=== PATIENT | male | born 1955 ===

== ENCOUNTER 2022-05-06 06:11 | Inpatient (IN) ==
[2022-05-01 11:11] LABS: Basophils % 0.3 % (0.0-0.8); Eosinophils # 0.1 10*3/uL (0.0-0.87); Eosinophils % 2.3 % (0.00-10.9); Hematocrit 42.9 VOL% (42.0-52.0); Hemoglobin 14.5 GM/DL (14.0-18.0); Immature Granulocytes % 0.5 %; Immature Granulocytes Absolute 0.03 #; Lymphocytes # 1.2 10*3/uL (1.4-4.0); Lymphocytes % 19.5 % (21.2-54.2); Mean Corpuscular HGB Conc 33.8 GM/DL (32-36); Mean Corpuscular Volume 96.6 FL (87-102); Mean Platelet Volume 11.3 FL (9.6-12.0); Monocytes # 0.4 10*3/uL (0.11-0.8); Neutrophils % 71.4 % (38.7-73.9); Platelet Count 153 T/CUMM (130-400); Red Blood Count 4.44 MC/CUMM (3.8-5.5); Red Cell Distribution Width 11.4 % (9.3-17.3); White Blood Count 6.2 T/CUMM (4-12)
[2022-05-01 11:40] LABS: Albumin 3.6 G/DL (3.4-5.0); Bilirubin,Total 0.8 MG/DL (0.20-1.00); Calcium 9.2 MG/DL (8.5-10.1); Osmolality,Calculated 279.4 MOS/KG (273-304); Potassium 4.4 MMOL/L (3.5-5.1); Total Protein 6.7 G/DL (6.4-8.2)
[~2022-05-06 06:11] MED LIST: ALVIMOPAN 12 MG CAPSULE PO ONE; LACTATED RINGERS 1,000 ML IV SCH; cefTRIAXone 1,000 MG in SODIUM CHLORIDE 0.9% 100 ML IV ONE
[2022-05-06] MEDS ORDERED: GABAPENTIN 400 MG CAPSULE PO ONE (08:01)
[2022-05-06] MEDS ORDERED: FAMOTIDINE 20 MG TABLET PO ONE (08:01)
[2022-05-06] MEDS ORDERED: DIAZEPAM 5 MG TABLET PO ONE (08:01)
[2022-05-06] MEDS ORDERED: ACETAMINOPHEN 500 MG TABLET PO ONE (08:01)
[2022-05-06] MEDS ORDERED: DEXMEDETOMIDINE 200 MCG/2 ML VIAL ONE (10:44)
[2022-05-06] MEDS ORDERED: MIDAZOLAM 2 MG/2 ML VIAL ONE (10:45)
[2022-05-06] MEDS ORDERED: LIDOCAINE 1% 5 ML VIAL ONE (10:50)
[2022-05-06] MEDS ORDERED: ROPIVACAINE 0.5% 30 ML VIAL ONE ×2 (10:51→11:53)
[2022-05-06] MEDS ORDERED: DEXAMETHASONE 4 MG/1 ML VIAL ONE ×2 (10:51)
[2022-05-06] MEDS ORDERED: fentaNYL 100 MCG/2 ML VIAL ONE (11:47)
[2022-05-06] MEDS ORDERED: ETOMIDATE 40 MG/20 ML VIAL IV ONE (11:48)
[2022-05-06] MEDS ORDERED: DESFLURANE 1 UNIT/15 MINUTE INH ONE ×2 (11:48→15:11)
[2022-05-06] MEDS ORDERED: LIDOCAINE 2% TOP JELLY 20 ML VIAL INTRAURETH ONE (11:53)
[2022-05-06] MEDS ORDERED: ONDANSETRON 4 MG/2 ML VIAL ONE (12:03)
[2022-05-06] MEDS ORDERED: ROCURONIUM 50 MG/5 ML VIAL IV ONE ×2 (12:31→12:35)
[2022-05-06 12:32] LABS: Mucus,Urine Occasional /LPF (Occasional); RBC,Urine 2 /HPF (0-4); Sperm,Urine Occasional /HPF (Negative); Urine Appearance Clear (Clear); Urine Color Yellow (Yellow)
[2022-05-06 12:33] LABS: Bilirubin,Urine Negative (Negative); Blood, Urine Trace mg/dL (Negative); Glucose,Urine (UA) Negative (Negative); Ketones,Urine Negative (Negative); Nitrite,Urine Negative (Negative); Protein,Urine Negative (Negative); Urine Urobilinogen 0.2 eU/dL (<2.0)
[2022-05-06] MEDS ORDERED: NEOSTIGMINE 10 MG/10 ML VIAL ONE (14:53)
[2022-05-06] MEDS ORDERED: GLYCOPYRROLATE 0.4 MG/2 ML VIAL ONE ×2 (14:53→15:00)
[2022-05-06] MEDS ORDERED: MAGNESIUM HYDROXIDE SUSP 30 ML UDCUP PO PRN (15:08)
[2022-05-06] MEDS ORDERED: ONDANSETRON 4 MG/2 ML VIAL IV PRN ×2 (15:08→16:15)
[2022-05-06] MEDS ORDERED: HYDROmorphone 1 MG/1 ML SYRINGE IV PRN (15:08)
[2022-05-06] MEDS ORDERED: diphenhydrAMINE 50 MG/1 ML VIAL IV PRN (15:08)
[2022-05-06] MEDS ORDERED: PROMETHAZINE 25 MG/1 ML VIAL IM PRN (15:08)
[2022-05-06] MEDS ORDERED: LACTATED RINGERS 1,000 ML IV ONE (15:10)
[2022-05-06] MEDS ORDERED: hydrALAZINE 25 MG TABLET PO PRN (15:11)
[2022-05-06] MEDS ORDERED: cefTRIAXone 1,000 MG in SODIUM CHLORIDE 0.9% 100 ML IV SCH (15:30)
[2022-05-06] MEDS ORDERED: MEPERIDINE 25 MG/1 ML VIAL ONE (15:49)
[2022-05-06 16:13] LABS: Basophils % 0.1 % (0.0-0.8); Eosinophils % 0.1 % (0.00-10.9); Hematocrit 41.8 VOL% (42.0-52.0); Immature Granulocytes % 0.4 %; Immature Granulocytes Absolute 0.04 #; Lymphocytes # 0.8 10*3/uL (1.4-4.0); Lymphocytes % 7.9 % (21.2-54.2); Mean Corpuscular HGB Conc 33.5 GM/DL (32-36); Mean Corpuscular Volume 98.6 FL (87-102); Monocytes # 0.2 10*3/uL (0.11-0.8); Monocytes % 1.6 % (1.7-12.7); Neutrophils % 89.9 % (38.7-73.9); Platelet Count 140 T/CUMM (130-400); Red Blood Count 4.24 MC/CUMM (3.8-5.5); Red Cell Distribution Width 11.7 % (9.3-17.3); White Blood Count 10.3 T/CUMM (4-12)
[2022-05-06] MEDS ORDERED: MEPERIDINE 25 MG/1 ML VIAL IV PRN (16:15)
[2022-05-06 16:31] LABS: Calcium 9.2 MG/DL (8.5-10.1); Osmolality,Calculated 280.7 MOS/KG (273-304); Potassium 4.1 MMOL/L (3.5-5.1)
[2022-05-06] MEDS: ACETAMINOPHEN 325 MG TABLET PO SCH ×2 (18:01→21:02)
[2022-05-06] MEDS: SODIUM CHLORIDE 0.9% 1,000 ML IV SCH (18:02)
[2022-05-06] MEDS: ALVIMOPAN 12 MG CAPSULE PO SCH (21:02)
[2022-05-06] MEDS: DOCUSATE SODIUM 100 MG CAPSULE PO SCH (21:02)
[2022-05-06] MEDS: OXYBUTYNIN 5 MG TABLET PO SCH (21:02)
[2022-05-07] MEDS: SODIUM CHLORIDE 0.9% 1,000 ML IV SCH ×2 (02:08→07:30)
[2022-05-07] MEDS: ACETAMINOPHEN 325 MG TABLET PO SCH ×4 (04:05→21:19)
[2022-05-07 05:13] LABS: Basophils % 0.2 % (0.0-0.8); Eosinophils % 0.4 % (0.00-10.9); Hematocrit 39.2 VOL% (42.0-52.0); Hemoglobin 13.1 GM/DL (14.0-18.0); Immature Granulocytes % 0.4 %; Immature Granulocytes Absolute 0.04 #; Lymphocytes % 10.1 % (21.2-54.2); Mean Corpuscular HGB Conc 33.4 GM/DL (32-36); Mean Corpuscular Volume 97.5 FL (87-102); Mean Platelet Volume 10.3 FL (9.6-12.0); Monocytes # 0.8 10*3/uL (0.11-0.8); Monocytes % 8.4 % (1.7-12.7); Neutrophils % 80.5 % (38.7-73.9); Platelet Count 141 T/CUMM (130-400); Red Blood Count 4.02 MC/CUMM (3.8-5.5); Red Cell Distribution Width 11.7 % (9.3-17.3); White Blood Count 9.4 T/CUMM (4-12)
[2022-05-07 05:32] LABS: Calcium 8.6 MG/DL (8.5-10.1); Osmolality,Calculated 278.7 MOS/KG (273-304); Potassium 4.3 MMOL/L (3.5-5.1)
[2022-05-07] MEDS: LEVOTHYROXINE 88 MCG TABLET PO SCH (05:39)
[2022-05-07] MEDS: ALVIMOPAN 12 MG CAPSULE PO SCH ×2 (09:02→20:14)
[2022-05-07] MEDS: OXYBUTYNIN 5 MG TABLET PO SCH ×3 (09:02→20:14)
[2022-05-07] MEDS: PANTOPRAZOLE 40 MG TABLET PO SCH (09:02)
[2022-05-07] MEDS: DOCUSATE SODIUM 100 MG CAPSULE PO SCH ×2 (09:02→20:15)
[2022-05-07] MEDS: oxyCODONE/ACETAMINOPHEN 5-325 MG TABLET PO PRN ×2 (10:03→20:14)
[2022-05-07] MEDS ORDERED: SODIUM CHLORIDE 0.9% 250 ML IV ONE (12:00)
[2022-05-07] MEDS: cefTRIAXone 1,000 MG in SODIUM CHLORIDE 0.9% 100 ML IV SCH (15:04)
[2022-05-07 16:26] LABS: Folate 7.33 NG/ML (5.38-24.0)
[2022-05-07 16:28] LABS: % Iron Saturation 6.9 % (18-50); Risk Ratio 2.89; VLDL Cholesterol 12.6 MG/DL
[2022-05-08] MEDS: ACETAMINOPHEN 325 MG TABLET PO SCH ×4 (03:29→20:44)
[2022-05-08] MEDS: SODIUM CHLORIDE 0.9% 1,000 ML IV SCH ×3 (04:33→18:55)
[2022-05-08 05:31] LABS: Basophils % 0.2 % (0.0-0.8); Eosinophils # 0.1 10*3/uL (0.0-0.87); Eosinophils % 0.8 % (0.00-10.9); Hematocrit 43.7 VOL% (42.0-52.0); Hemoglobin 14.8 GM/DL (14.0-18.0); Immature Granulocytes % 0.5 %; Immature Granulocytes Absolute 0.05 #; Lymphocytes # 0.9 10*3/uL (1.4-4.0); Lymphocytes % 8.5 % (21.2-54.2); Mean Corpuscular HGB Conc 33.9 GM/DL (32-36); Mean Platelet Volume 10.7 FL (9.6-12.0); Monocytes # 0.9 10*3/uL (0.11-0.8); Monocytes % 7.9 % (1.7-12.7); Neutrophils % 82.1 % (38.7-73.9); Platelet Count 140 T/CUMM (130-400); Red Blood Count 4.55 MC/CUMM (3.8-5.5); Red Cell Distribution Width 11.4 % (9.3-17.3)
[2022-05-08] MEDS: LEVOTHYROXINE 88 MCG TABLET PO SCH (05:32)
[2022-05-08 05:49] LABS: Calcium 8.8 MG/DL (8.5-10.1); Osmolality,Calculated 273.2 MOS/KG (273-304)
[2022-05-08 05:53] LABS: Platelet Estimate Adequate
[2022-05-08] MEDS ORDERED: SODIUM CHLORIDE 0.9% 500 ML IV ONE (07:07)
[2022-05-08] MEDS: DOCUSATE SODIUM 100 MG CAPSULE PO SCH ×2 (08:10→20:45)
[2022-05-08] MEDS: ALVIMOPAN 12 MG CAPSULE PO SCH ×2 (08:10→20:44)
[2022-05-08] MEDS: PANTOPRAZOLE 40 MG TABLET PO SCH (08:10)
[2022-05-08] MEDS: OXYBUTYNIN 5 MG TABLET PO SCH ×3 (08:10→20:44)
[2022-05-08] MEDS: CHOLECALCIFEROL 1,000 UNIT TABLET PO SCH (10:14)
[2022-05-08] MEDS: FERRIC GLUCONATE COMPLEX 125 MG in SODIUM CHLORIDE 0.9% 100 ML IV SCH (10:14)
[2022-05-08] MEDS: oxyCODONE/ACETAMINOPHEN 5-325 MG TABLET PO PRN ×2 (11:20→20:44)
[2022-05-08] MEDS: cefTRIAXone 1,000 MG in SODIUM CHLORIDE 0.9% 100 ML IV SCH (15:18)
[2022-05-08] MEDS ORDERED: traZODone 50 MG TABLET PO PRN (15:54)
[2022-05-09] MEDS: SODIUM CHLORIDE 0.9% 1,000 ML IV SCH ×2 (03:01→18:34)
[2022-05-09] MEDS: ACETAMINOPHEN 325 MG TABLET PO SCH ×4 (03:03→21:00)
[2022-05-09] MEDS: LEVOTHYROXINE 88 MCG TABLET PO SCH (05:41)
[2022-05-09 06:21] LABS: Basophils % 0.2 % (0.0-0.8); Eosinophils # 0.1 10*3/uL (0.0-0.87); Eosinophils % 0.7 % (0.00-10.9); Hematocrit 44.3 VOL% (42.0-52.0); Hemoglobin 15.3 GM/DL (14.0-18.0); Immature Granulocytes % 0.7 %; Immature Granulocytes Absolute 0.08 #; Lymphocytes # 0.7 10*3/uL (1.4-4.0); Lymphocytes % 6.3 % (21.2-54.2); Mean Corpuscular HGB Conc 34.5 GM/DL (32-36); Mean Corpuscular Volume 94.3 FL (87-102); Mean Platelet Volume 10.4 FL (9.6-12.0); Monocytes # 1.1 10*3/uL (0.11-0.8); Monocytes % 9.9 % (1.7-12.7); Neutrophils % 82.2 % (38.7-73.9); Platelet Count 132 T/CUMM (130-400); Red Cell Distribution Width 11.4 % (9.3-17.3); White Blood Count 10.8 T/CUMM (4-12)
[2022-05-09 06:38] LABS: Calcium 8.7 MG/DL (8.5-10.1); Osmolality,Calculated 267.5 MOS/KG (273-304); Potassium 4.2 MMOL/L (3.5-5.1)
[2022-05-09 06:41] LABS: Albumin 2.7 G/DL (3.4-5.0); Bilirubin,Direct 0.16 MG/DL (0.0-0.20); Bilirubin,Indirect 0.6 MG/DL (0.0-1.0); Bilirubin,Total 0.8 MG/DL (0.20-1.00); Total Protein 5.8 G/DL (6.4-8.2)
[2022-05-09] MEDS ORDERED: ALBUMIN 25% 12.5 GM/50 ML VIAL IV ONE (09:13)
[2022-05-09] MEDS: OXYBUTYNIN 5 MG TABLET PO SCH ×3 (09:34→21:00)
[2022-05-09] MEDS: PANTOPRAZOLE 40 MG TABLET PO SCH (09:34)
[2022-05-09] MEDS: ALVIMOPAN 12 MG CAPSULE PO SCH ×2 (09:35→21:00)
[2022-05-09] MEDS: CHOLECALCIFEROL 1,000 UNIT TABLET PO SCH (09:35)
[2022-05-09] MEDS: DOCUSATE SODIUM 100 MG CAPSULE PO SCH ×2 (09:35→21:00)
[2022-05-09] MEDS: FERRIC GLUCONATE COMPLEX 125 MG in SODIUM CHLORIDE 0.9% 100 ML IV SCH (10:22)
[2022-05-09] MEDS ORDERED: BISACODYL 10 MG SUPP RECTAL ONE (12:30)
[2022-05-09] MEDS: cefTRIAXone 1,000 MG in SODIUM CHLORIDE 0.9% 100 ML IV SCH (16:34)
[2022-05-09] MEDS: oxyCODONE/ACETAMINOPHEN 5-325 MG TABLET PO PRN (23:16)
[2022-05-10] MEDS: SIMETHICONE CHEW 125 MG TABLET PO PRN ×3 (01:58→09:21)
[2022-05-10] MEDS: ACETAMINOPHEN 325 MG TABLET PO SCH ×4 (04:08→20:42)
[2022-05-10 05:34] LABS: Basophils % 0.2 % (0.0-0.8); Eosinophils # 0.1 10*3/uL (0.0-0.87); Eosinophils % 0.7 % (0.00-10.9); Hematocrit 43.5 VOL% (42.0-52.0); Hemoglobin 14.7 GM/DL (14.0-18.0); Immature Granulocytes % 0.7 %; Immature Granulocytes Absolute 0.07 #; Lymphocytes # 0.8 10*3/uL (1.4-4.0); Lymphocytes % 7.8 % (21.2-54.2); Mean Corpuscular HGB Conc 33.8 GM/DL (32-36); Mean Corpuscular Volume 94.4 FL (87-102); Mean Platelet Volume 10.1 FL (9.6-12.0); Monocytes # 1.1 10*3/uL (0.11-0.8); Monocytes % 11.1 % (1.7-12.7); Neutrophils % 79.5 % (38.7-73.9); Platelet Count 150 T/CUMM (130-400); Red Blood Count 4.61 MC/CUMM (3.8-5.5); Red Cell Distribution Width 11.3 % (9.3-17.3); White Blood Count 10.2 T/CUMM (4-12)
[2022-05-10 05:44] LABS: Calcium 9.3 MG/DL (8.5-10.1); Osmolality,Calculated 264.7 MOS/KG (273-304); Potassium 4.4 MMOL/L (3.5-5.1)
[2022-05-10] MEDS: LEVOTHYROXINE 88 MCG TABLET PO SCH (06:47)
[2022-05-10] MEDS: PANTOPRAZOLE 40 MG TABLET PO SCH (09:21)
[2022-05-10] MEDS: ALVIMOPAN 12 MG CAPSULE PO SCH ×2 (09:21→20:42)
[2022-05-10] MEDS: DOCUSATE SODIUM 100 MG CAPSULE PO SCH ×2 (09:21→20:41)
[2022-05-10] MEDS: OXYBUTYNIN 5 MG TABLET PO SCH ×3 (09:21→20:42)
[2022-05-10] MEDS: CHOLECALCIFEROL 1,000 UNIT TABLET PO SCH (09:21)
[2022-05-10] MEDS: FERRIC GLUCONATE COMPLEX 125 MG in SODIUM CHLORIDE 0.9% 100 ML IV SCH (09:23)
[2022-05-10] MEDS: SODIUM CHLORIDE 0.9% 1,000 ML IV SCH ×2 (10:59→11:00)
[2022-05-10] MEDS: cefTRIAXone 1,000 MG in SODIUM CHLORIDE 0.9% 100 ML IV SCH (16:34)
[2022-05-11] MEDS: ACETAMINOPHEN 325 MG TABLET PO SCH ×5 (03:36→20:55)
[2022-05-11 04:06] LABS: Basophils % 0.2 % (0.0-0.8); Eosinophils # 0.2 10*3/uL (0.0-0.87); Hematocrit 38.8 VOL% (42.0-52.0); Immature Granulocytes % 0.7 %; Immature Granulocytes Absolute 0.07 #; Lymphocytes # 0.7 10*3/uL (1.4-4.0); Lymphocytes % 6.7 % (21.2-54.2); Mean Corpuscular HGB Conc 33.5 GM/DL (32-36); Mean Platelet Volume 9.2 FL (9.6-12.0); Monocytes # 1.1 10*3/uL (0.11-0.8); Monocytes % 11.3 % (1.7-12.7); Neutrophils % 79.1 % (38.7-73.9); Platelet Count 157 T/CUMM (130-400); Red Blood Count 4.04 MC/CUMM (3.8-5.5); Red Cell Distribution Width 11.3 % (9.3-17.3); White Blood Count 9.9 T/CUMM (4-12)
[2022-05-11 04:20] LABS: Calcium 8.7 MG/DL (8.5-10.1); Osmolality,Calculated 273.1 MOS/KG (273-304); Potassium 4.6 MMOL/L (3.5-5.1)
[2022-05-11] MEDS: LEVOTHYROXINE 88 MCG TABLET PO SCH (05:58)
[2022-05-11] MEDS: SODIUM CHLORIDE 0.9% 1,000 ML IV SCH (08:26)
[2022-05-11] MEDS: CHOLECALCIFEROL 1,000 UNIT TABLET PO SCH (08:27)
[2022-05-11] MEDS: DOCUSATE SODIUM 100 MG CAPSULE PO SCH ×2 (08:27→20:21)
[2022-05-11] MEDS: ALVIMOPAN 12 MG CAPSULE PO SCH ×2 (08:27→20:21)
[2022-05-11] MEDS: OXYBUTYNIN 5 MG TABLET PO SCH ×3 (08:27→20:21)
[2022-05-11] MEDS: PANTOPRAZOLE 40 MG TABLET PO SCH (08:27)
[2022-05-11] MEDS: FERRIC GLUCONATE COMPLEX 125 MG in SODIUM CHLORIDE 0.9% 100 ML IV SCH (10:14)
[2022-05-11] MEDS: amLODIPine 5 MG TABLET PO SCH (15:56)
[2022-05-11] MEDS: cefTRIAXone 1,000 MG in SODIUM CHLORIDE 0.9% 100 ML IV SCH (15:59)
[2022-05-11] MEDS ORDERED: IBUPROFEN 400 MG TABLET PO ONE (18:25)
[2022-05-12] MEDS: ACETAMINOPHEN 325 MG TABLET PO SCH (04:20)
[2022-05-12 06:34] LABS: Basophils % 0.4 % (0.0-0.8); Eosinophils # 0.3 10*3/uL (0.0-0.87); Eosinophils % 3.6 % (0.00-10.9); Hematocrit 37.1 VOL% (42.0-52.0); Hemoglobin 12.3 GM/DL (14.0-18.0); Immature Granulocytes % 0.7 %; Immature Granulocytes Absolute 0.05 #; Lymphocytes # 0.7 10*3/uL (1.4-4.0); Lymphocytes % 9.9 % (21.2-54.2); Mean Corpuscular HGB Conc 33.2 GM/DL (32-36); Mean Corpuscular Volume 98.1 FL (87-102); Monocytes # 0.8 10*3/uL (0.11-0.8); Neutrophils % 75.4 % (38.7-73.9); Platelet Count 142 T/CUMM (130-400); Red Blood Count 3.78 MC/CUMM (3.8-5.5); Red Cell Distribution Width 11.4 % (9.3-17.3); White Blood Count 7.5 T/CUMM (4-12)
[2022-05-12] MEDS: LEVOTHYROXINE 88 MCG TABLET PO SCH (06:36)
[2022-05-12 07:07] LABS: Calcium 8.7 MG/DL (8.5-10.1); Osmolality,Calculated 272.8 MOS/KG (273-304); Potassium 3.9 MMOL/L (3.5-5.1)
[2022-05-12 08:04] VITALS: BP 136/69
[2022-05-12] MEDS: amLODIPine 5 MG TABLET PO SCH (08:57)
[2022-05-12] MEDS: OXYBUTYNIN 5 MG TABLET PO SCH (08:57)
[2022-05-12] MEDS: ALVIMOPAN 12 MG CAPSULE PO SCH (08:57)
[2022-05-12] MEDS: CHOLECALCIFEROL 1,000 UNIT TABLET PO SCH (08:57)
[2022-05-12] MEDS: PANTOPRAZOLE 40 MG TABLET PO SCH (08:57)
[2022-05-12] MEDS: DOCUSATE SODIUM 100 MG CAPSULE PO SCH (08:57)
== END 2022-05-12 10:30 | disposition home or self-care (01) | DRG 707 ==
LOC: N.OR 06:11 → N.SDSINP 06:12 → N.3E 15:08
PROVIDERS: ADMIT Surgery; ATTEND Surgery